=== PATIENT | female | born 1965 | race Caucasian/White ===

== ENCOUNTER 2021-03-23 06:48 | Outpatient (CLI) | payer OTHER, SELFPAY ==
[2021-03-23 07:30] VITALS: BP 123/78; PULSE 96; RESP 20; TEMP 37.9; O2SAT 97
[2021-03-23 07:50] VITALS: BP 122/78; PULSE 94; RESP 20; TEMP 37.9; O2SAT 91
[2021-03-23 09:17] VITALS: BP 118/75; PULSE 88; RESP 20; TEMP 37.4; O2SAT 95
== END 2021-03-23 06:49 | disposition home or self-care (01) ==
PROVIDERS: PCP Family Medicine; Visit Provider Family Medicine
DX: U07.1 COVID-19 (principal); I51.9 Heart disease, unspecified
CPT/HCPCS: 96365

== ENCOUNTER 2021-04-12 14:23 | Outpatient (CLI) | payer OTHER, SELFPAY ==
--- NOTE | 2021-04-12 14:32 | XR_ITS ---
WS: [id number] CHEST 2 VIEWS HISTORY: COVID COMPARISON: None available. Lungs: Poor inspiration and decreased lung volumes. Mild elevation of the RIGHT hemidiaphragm. Subseg mental areas of atelectasis in the mid and lower lung dietrich bilaterally. No dense areas of consolida tion. Cardiac size: Normal. Mediastinum/Aorta: Normal mediastinum. Bones: Normal. XR/XR chest 2V* [id number] IMPRESSION: Decreased lung volumes due to poor inspiration and areas of atelectasis. No den se area of consolidation or residual pneumonia.
== END 2021-04-12 14:24 | disposition home or self-care (01) ==
LOC: RAD 14:28
PROVIDERS: PCP Family Medicine; Visit Provider Family Medicine
DX: U07.1 COVID-19 (principal); R06.00 Dyspnea, unspecified
CPT/HCPCS: 71046

== ENCOUNTER 2021-06-22 09:32 | Outpatient (CLI) | payer OTHER, SELFPAY ==
--- NOTE | 2021-06-22 09:40 | XR_ITS ---
WS: [id number] Exam: XR ankle LT min 3V* [id number] Date/Time of Exam: 06/22/2021 9:45 AM Reason For Exam: LEFT HEEL PAIN Findings: Multiple views of the ankle reveal no fracture or displacements of bone. No soft tissue swelling is present. There are no periosteal reactions noted. The talus and calcaneus are in adequate position. The joint space is smooth and equidistant. XR/XR ankle LT min 3V* [id number] IMPRESSION: Negative left ankle.
--- NOTE | 2021-06-22 09:40 | XR_ITS ---
WS: [id number] Exam: XR foot LT min 3V* [id number] Date/Time of Exam: 06/22/2021 9:45 AM Reason For Exam: LEFT HEEL PAIN No fracture or dislocation. No radiopaque soft tissue foreign bodies are identified. Joint structures are well-maintained. Tiny heel spurs. XR/XR foot LT min 3V* [id number] IMPRESSION: 1. Small heel spurs. 2. No fracture or other significant finding.
== END 2021-06-22 09:33 | disposition home or self-care (01) ==
LOC: RAD 09:35
PROVIDERS: PCP Family Medicine; Visit Provider Family Medicine
DX: M79.672 Pain in left foot (principal)
CPT/HCPCS: 73610; 73630